=== PATIENT | male | born 1960 | race Caucasian/White ===

== ENCOUNTER → 2020-03-21 | Outpatient (CLI) | payer BC | LOC: COL.RAD 08:30 | DX: M25.551 Pain in right hip (principal) | CPT/HCPCS: J3301; Q9967 ==

== ENCOUNTER → 2022-07-07 | Outpatient (CLI) | payer BC | LOC: COL.RAD 07:30 | DX: M48.061 Spinal stenosis, lumbar region without neurogenic claudication (principal); M89.38 Hypertrophy of bone, other site; M48.02 Spinal stenosis, cervical region; M50.221 Other cervical disc displacement at C4-C5 level | CPT/HCPCS: A9575 ==